=== PATIENT | female | born 1990 | race Caucasian/White ===

== ENCOUNTER → 2018-02-25 | Outpatient (CLI) | payer OTHER ==
--- NOTE | 2018-02-25 11:37 | XR ---
EXAMINATION TYPE: XR knee 4V LT DATE OF EXAM: 02/25/2018 COMPARISON: NONE HISTORY: Pain TECHNIQUE: Four views are submitted. FINDINGS: Joint spaces are preserved. Osseous structures are intact. No acute fracture seen. IMPRESSION: 1. No acute fracture or dislocation. Consider follow-up MRI.
== END | disposition home or self-care (01) ==
LOC: RADXRYALE 11:15
PROVIDERS: ATTEND Family Medicine
DX: M25.562 Pain in left knee (principal)

== ENCOUNTER → 2019-10-31 | Outpatient (CLI) | payer MEDICAID ==
--- NOTE | 2019-10-31 08:29 | US ---
EXAMINATION TYPE: US pelvis complete transvag DATE OF EXAM: 10/31/2019 COMPARISON: NONE CLINICAL HISTORY: Z30.431 Encounter for routine checking of intraute. IUD placement 07/28/19 TECHNIQUE: Transvaginal (TV) and Transabdominal (TA) . Transabdominal sonographic images of the pel vis were acquired. Transvaginal sonographic images were medically necessary to better assess the fol lowing anatomy: IUD Date of LMP: unknown EXAM MEASUREMENTS: Uterus: 6.8 x 3.0 x 4.8 cm Endometrial Stripe: 0.3 cm Right Ovary: 3.1 x 1.7 x 1.9 cm Left Ovary: 2.9 x 2.0 x 2.0 cm 1. Uterus: Anteverted 2. Endometrium: IUD visualized within body/AGNIESZKA 3. Right Ovary: multiple follicles 4. Left Ovary: multiple follicles 5. Bilateral Adnexa: appears wnl 6. Posterior cul-de-sac: appears wnl IMPRESSION: Intrauterine device centrally located within the lower uterine segment and uterine body. Physiologic follicular change of the ovaries.
== END | disposition home or self-care (01) ==
LOC: RADUSWWP 07:39
PROVIDERS: ATTEND Obstetrics & Gynecology Obstetrics
DX: Z30.431 Encounter for routine checking of intrauterine contraceptive device (principal)
CPT/HCPCS: 76830; 76856

== ENCOUNTER → 2019-11-17 | Outpatient (CLI) | payer MEDICAID ==
--- NOTE | 2019-11-17 21:51 | MR ---
EXAMINATION TYPE: MR wrist RT wo con DATE OF EXAM: 11/17/2019 COMPARISON: No radiographic correlation available HISTORY: 29-year-old female M25.531. Pain in Right Wrist. [place] six months ago heard a pop, P ain since. TECHNIQUE: Multiplanar, multisequence images of the right wrist were obtained without IV contrast. FINDINGS: There is a palpable marker placed along the dorsum of the carpus. Underlying extensor digitorum tendo n. Small underlying ganglion cyst along the dorsal carpus deep to the extensor tendons measuring 1.1 cm wide by 2 mm thick by 5 mm craniocaudal. Incidental negative ulnar variance is noted. The TFC appears intact. The scapholunate and lunotriquetral ligaments appear intact. Small wrist joint effusion extending into a volar radial recess. Median nerve cross-sectional area at the level of the carpal tunnel is 12.4 sq mm which is borderline thickened and should be correlated clinically. Volar flexor tendons are satisfactory. Mild tenosynovial thickening about the extensor carpi ulnaris at the level of the ulnar styloid proce ss. There is slight anterior subluxation of the tendon noted. No suspicious bone marrow replacement. No evidence for acute or healing fracture. IMPRESSION: 1. Mild tenosynovial thickening about the ECU at the level of the ulnar styloid process and anterior subluxation of the tendon. Correlate for any symptoms of an ECU subsheath sprain. 2. Palpable marker along the dorsum of the carpus. Underlying the palpable marker, there is a small 1 .1 x 0.2 x 0.5 mm ganglion cyst deep to the extensor digitorum. 3. Borderline cross-sectional area of the median nerve at the carpal tunnel of 12.4 sq mm. Query any symptoms of carpal tunnel syndrome.
== END | disposition home or self-care (01) ==
LOC: RADMRIMAIN 07:44
PROVIDERS: ATTEND Orthopaedic Surgery Hand Surgery
DX: M25.531 Pain in right wrist (principal); R20.2 Paresthesia of skin; M65.841 Other synovitis and tenosynovitis, right hand; M67.431 Ganglion, right wrist

== ENCOUNTER → 2020-02-12 | Outpatient (CLI) | payer MEDICAID ==
[2020-02-12 13:14] LABS: Basophils % (A) 1 %; Eosinophils # (A) 0.1 k/uL (0-0.7); Eosinophils % (A) 2 %; HCT 36.9 % (34.0-46.0); HGB 12.2 gm/dL (11.4-16.0); Lymphocytes # (A) 1.7 k/uL (1.0-4.8); Lymphocytes % (A) 23 %; MCH 28.5 pg (25.0-35.0); MCV 86.4 fL (80.0-100.0); Mean Platelet Volume 6.7; Monocytes # (A) 0.4 k/uL (0-1.0); Monocytes % (A) 6 %; Neutrophils # (A) 4.8 k/uL (1.3-7.7); Neutrophils % (A) 68 %; Platelet Count 274 k/uL (150-450); RBC 4.27 m/uL (3.80-5.40); RDW 12.5 % (11.5-15.5); WBC 7.1 k/uL (3.8-10.6)
[2020-02-12 19:10] LABS: African American GFR (CKD) 116.3 (60.0-200.0); Albumin 4.6 g/dL (3.80-4.90); Albumin/Globulin Ratio 1.92 (1.60-3.17); Anion Gap 3.8 mmol/L (4.00-12.00); Calcium 9.6 mg/dL (8.7-10.3); Carbon Dioxide 29.2 mmol/L (21.6-31.8); Globulin 2.4 g/dL (1.6-3.3); Non-African American GFR(CKD) 100.3 (60.0-200.0); Potassium 4.3 mmol/L (3.5-5.5); Total Bilirubin 1.4 mg/dL (0.3-1.2)
== END | disposition home or self-care (01) ==
LOC: LABWHC1 12:41
PROVIDERS: ATTEND Family Medicine
DX: F33.1 Major depressive disorder, recurrent, moderate (principal)
CPT/HCPCS: 36415; 80053; 84439; 84443; 85025

== ENCOUNTER → 2020-10-05 | Outpatient (CLI) | payer BC ==
--- NOTE | 2020-10-05 22:05 | MR ---
EXAMINATION TYPE: MR shoulder RT wo con DATE OF EXAM: 10/05/2020 COMPARISON: None HISTORY: Right shoulder pain and limited range of motion for 6 months. Technique: Multiplanar, multiecho imaging on a 3.0 Kirsten magnet is performed through the shoulder. Findings: Long head of the biceps tendon is within the bicipital groove. No significant joint effusion is evident. Glenoid labrum as visualized on this noncontrast study amadou ears intact. Rotator cuff tendons are evaluated. There may be some minimal fluid in the subacromial bursa. Minima l fluid superior to the supraspinatus tendon. Suspicious signal transversing the rotator cuff however is not evident. Findings are suggestive for tendinosis. No suspicious changes to suggest perforation is evident. There is no tendon or muscle retraction. No muscle atrophy is evident. The acromioclavic ular junction is normal. There is some downward sloping of the distal acromion which can contribute t o impingement syndrome. IMPRESSIONS: 1. Findings suggestive for moderate tendinosis. Perforation is not identified.
== END | disposition home or self-care (01) ==
LOC: RADMRIMAIN 16:52
PROVIDERS: ATTEND Family Medicine
DX: M25.511 Pain in right shoulder (principal)

== ENCOUNTER → 2020-12-29 | Outpatient (CLI) | payer BC ==
--- NOTE | 2020-12-30 10:01 | XR ---
EXAMINATION TYPE: XR cervical spine comp DATE OF EXAM: 12/29/2020 COMPARISON: NONE HISTORY: Pain TECHNIQUE: Four views are submitted. FINDINGS: The odontoid is intact. There are no compression deformities. The prevertebral soft tissue structur es are within normal limits. IMPRESSION: 1. No acute process.
--- NOTE | 2020-12-30 10:18 | XR ---
EXAMINATION TYPE: XR hand complete bilateral DATE OF EXAM: 12/29/2020 COMPARISON: NONE HISTORY: Pain TECHNIQUE: Three views are submitted. FINDINGS: The osseous structures are intact. The joint spaces are preserved and there is no acute fracture or dislocation. IMPRESSION: 1. No definite acute fracture or dislocation if symptoms persist, follow-up study in 7 to 10 days wo uld be suggested
--- NOTE | 2020-12-30 10:21 | XR ---
EXAMINATION TYPE: XR wrist complete BILATERAL DATE OF EXAM: 12/29/2020 COMPARISON: NONE HISTORY: Pain TECHNIQUE: Four views of each wrist submitted. FINDINGS: The osseous structures are intact. The joint spaces are preserved and there is no acute fracture or dislocation. Chronic density involving the right scaphoid compatible with bone island. IMPRESSION: 1. No definite acute fracture or dislocation if symptoms persist, follow-up study in 7 to 10 days wo uld be suggested
== END | disposition home or self-care (01) ==
LOC: RADXRMAIN 18:31
PROVIDERS: ATTEND Internal Medicine Rheumatology
DX: M13.0 Polyarthritis, unspecified (principal)
CPT/HCPCS: 72050

== ENCOUNTER 2021-04-05 13:03 | Emergency (ER) | payer BC ==
[2021-04-05 13:18] VITALS: BP 128/78; PULSE 88; RESP 20; TEMP 98.2
[2021-04-05] MEDS ORDERED: FAMOTIDINE 20 MG TAB PO STA (13:18)
[2021-04-05] MEDS ORDERED: predniSONE 50 MG TAB PO STA (13:18)
[2021-04-05] MEDS ORDERED: diphenhydrAMINE 25 MG CAP PO STA (13:18)
--- NOTE | 2021-04-05 13:47 | ED ---
Allergic Reaction HPI - General Chief complaint: Allergic Reaction Stated complaint: allergic reaction Time Seen by Provider: 04/05/21 13:06 Source: patient, RN notes reviewed Mode of arrival: EMS Limitations: no limitations - History of Present Illness Initial Comments: A she is a 30-year-old female that presents to emergency room complaining of ALLERGIC reaction. She no she got her tetanus vaccine update. She notes that she forgot she was ALLERGIC to the pertussis portion of the vaccine. She notes she [facility] the EpiPen [facility] shortly after vaccine. She denied any other medication on right over the EMS. She notes that she would like to get no more shots. But would rather take anything orally. She was otherwise well-appearing. She denied any chest pain shortness breath headache nausea vomiting diarrhea constipation fever fatigue chills. - Related Data Home Medications Medication Instructions Recorded Confirmed Doxycycline Hyclate [Vibramycin] 100 mg PO HS 04/17/16 04/17/16 Previous Rx's Medication Instructions Recorded Ondansetron Odt [Zofran ODT] 4 mg PO Q8HR PRN #20 tab 04/17/16 predniSONE 50 mg PO DAILY #5 tab 04/05/21 Allergies Allergy/AdvReac Type Severity Reaction Status Date / Time azithromycin [From Zithromax] Allergy Unknown Verified 04/17/16 10:23 Review of Systems ROS Statement: Those systems with pertinent positive or pertinent negative responses have been documented in the HPI. ROS Other: All systems not noted in ROS Statement are negative. Past Medical History Past Medical History: No Reported History History of Any Multi-Drug Resistant Organisms: None Reported Past Surgical History: Appendectomy Past Psychological History: No Psychological Hx Reported Past Alcohol Use History: Occasional Past Drug Use History: None Reported General Exam Limitations: no limitations General appearance: alert, in no apparent distress Head exam: Present: atraumatic, normocephalic, normal inspection Eye exam: Present: normal appearance, PERRL, EOMI. Absent: scleral icterus, conjunctival injection, periorbital swelling ENT exam: Present: normal exam, mucous membranes moist Neck exam: Present: normal inspection Respiratory exam: Present: normal lung sounds bilaterally. Absent: respiratory distress, wheezes, rales, rhonchi, stridor Cardiovascular Exam: Present: regular rate, normal rhythm, normal heart sounds. Absent: systolic murmur, diastolic murmur, rubs, gallop, clicks GI/Abdominal exam: Present: soft, normal bowel sounds. Absent: distended, tenderness, guarding, rebound, rigid Extremities exam: Present: normal inspection, full ROM, normal capillary refill. Absent: tenderness, pedal edema, joint swelling, calf tenderness Neurological exam: Present: alert, oriented X3 Psychiatric exam: Present: normal affect, normal mood Skin exam: Present: warm, dry, intact, normal color. Absent: rash Course Vital Signs 04/05/21 13:10 Temperature 98.2 F Pulse Rate 88 Respiratory 20 Rate Blood Pressure 128/78 O2 Sat by Pulse 99 Oximetry Medical Decision Making - Medical Decision Making 30-year-old female with ALLERGIC reaction to the tetanus vaccine. 50 mg prednisone, 20 mg of Pepcid, 25 mg of Benadryl ordered. Patient states she is feeling much better than initially and declined any injections or shots. Patient is agreeable with discharge home with conservative management continuing Benadryl. Case discussed with Dr. Valdes, patient discharge home. Disposition Clinical Impression: Allergic reaction Disposition: HOME SELF-CARE Condition: Stable Instructions (If sedation given, give patient instructions): Anaphylaxis (ED) Additional Instructions: Please return to the Emergency Department if symptoms worsen or any other concerns. Follow-up with primary care 1-2 days. Take Benadryl as directed by the box. Is patient prescribed a controlled substance at d/c from ED?: No Referrals: Donnie Reyes III, MD [Primary Care Provider] - 1-2 days Time of Disposition: 13:47
== END 2021-04-05 14:03 | disposition home or self-care (01) ==
LOC: EC 13:03
DX: T80.62XA Other serum reaction due to vaccination, initial encounter (principal); T50.A15A Adverse effect of pertussis vaccine, including combinations with a pertussis component, initial encounter; Z88.1 Allergy status to other antibiotic agents
CPT/HCPCS: 99283; J7512

== ENCOUNTER → 2022-05-26 | Outpatient (CLI) | payer BC | END | disposition home or self-care (01) | LOC: LABWHC1 11:15 | PROVIDERS: ATTEND Otolaryngology | DX: L50.0 Allergic urticaria (principal); T78.00XA Anaphylactic reaction due to unspecified food, initial encounter | CPT/HCPCS: 36415; 86001; 86003 ==